=== PATIENT | female | born 1975 | race Caucasian/White ===

== ENCOUNTER 2025-04-08 04:15 | Emergency (ER) | payer OTHER, SELFPAY ==
--- OUTSIDE RECORDS SUMMARY | 2024-06-24 04:00 | XMS_ITS ---
Author Organization [facility] es Address [address] [place] [address] Care Team Providers Care Door Repairer Bus Name Role Phone Marija Lam Primary Care Provider Suhail Curry [phone] REASON FOR VISIT message sent Encounters Encounter Location Date Provider Diagnosis [facility] [place] [address] [place] [address] 06/24/2024 Suhail Curry Plan Of Treatment Next Appt Details Provider Name:Radha Turner, 04/08/2025 09:15:00 AM, [address], [place], [address], Provider Name:Norbert Fuentes, 1 06/09/2024 10:00:00 AM, [address], [place], [address], Progress Notes * WILBUR VILLALBA LDOB: 5 (50 yo F)Acc No.[id number]:06/24/2024 Patient:?WILBUR VILLALBA :?Suhail Curry DDSDOB:1975???Age:49 Y ???Sex:FemaleDate:06/24/2024Phone:[phone]:[address] [place] [address]Pcp:Marija Lam Subjective: * Chief Complaints: * M essage sent * Electronic signature of Suhail Curry DDS on 04/08/2025 at 05:01 AM ESTSign off status: Pending * Provider: Gabriele Curry DDS Date: 0 06/24/2024 Generated for Printing/Faxing/eTransmitting on:?04/08/2025 05:01 AM EST
--- OUTSIDE RECORDS SUMMARY | 2024-08-01 05:15 | XMS_ITS ---
Author Organization [facility] es Address [address] [place] [address] Care Team Providers Care Mc Kay Stitcher Name Role Phone Marija Lam Primary Care Provider [phone] Juana Reid Unavailable [phone] REASON FOR VISIT 10:45 AM; 1 HR 15 MIN Encounters Encounter Location Date Provider Diagnosis [facility] [address] [place] [address] 08/01/2024 Juana Reid Plan Of Treatment Next Appt Details Provider Name:Radha Turner, 04/08/2025 09:15:00 AM, [address], [place], [address], Provider Name:Norbert Bellzk, 1 06/09/2024 10:00:00 AM, [address], [place], [address], Progress Notes * WILBUR VILLALBA LDOB: 5 (50 yo F)Acc No.[id number]:08/01/2024 Patient:?WILBUR VILLALBA :?Juana MartinezDOB:1975???Age:49 Y???Sex:Female Date:08/01/2024Phone:[phone]:[address] [place] [address]Pcp:Marija Lam Subjective: * Chief Complaints: * 1 0:45 AM; 1 HR 15 MIN Billing Information: * Procedure Codes: * Electronic signature of Juana Reid CNP on 04/08/2025 at 05:01 AM ESTSign off status: Pending * Provider: Gabriele Martinez Date: 0 08/01/2024 Generated for Printing/Faxing/eTransmitting on:?04/08/2025 05:01 AM EST
--- OUTSIDE RECORDS SUMMARY | 2024-08-01 05:45 | XMS_ITS ---
Author Organization [facility] es Address [address] [place] [address] Care Team Providers Care Digital Research Analyst Name Role Phone Marija Lam Primary Care Provider [phone] Mari Sky Unavailable [phone] REASON FOR VISIT BH Consult - Adult DEPRESSION, ANXIETY; TRANSPORTATION Encounters Encounter Location Date Provider Diagnosis [facility] [address] [place] [address] 08/01/2024 Mari Sky Plan Of Treatment Next Appt Details Provider Name:Radha Turner, 04/08/2025 09:15:00 AM, [address], [place], [address], Provider Name:Norbert Bellzk, 1 06/09/2024 10:00:00 AM, [address], [place], [address], Progress Notes * WILBUR VILLALBA LDOB: 5 (50 yo F)Acc No.[id number]:08/01/2024 Behavioral Health Patient: WILBUR PAKC :?Mari kSy CNPDOB:1975???Age:49 Y ???Sex:FemaleDate:08/01/2024Phone:[phone]:[address] [place] [address]Pcp:Marija Lam Subjective: * Chief Complaints: * B H Consult - Adult DEPRESSION, ANXIETY; TRANSPORTATION Billing Information: * Procedure Codes: * Electronic signature of NURIA Romo on 04/08/2025 at 05:02 AM ESTSign off status: Pending * Provider: Nova Sky CNP Date: 0 08/01/2024 Generated for Printing/Faxing/eTransmitting on:?04/08/2025 05:02 AM EST
--- OUTSIDE RECORDS SUMMARY | 2024-08-05 06:30 | XMS_ITS ---
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 Encounters Encounter Location Date Provider Diagnosis [facility] [place] [address] [place] [address] 08/05/2024 Suhail Curry Plan Of Treatment Next Appt Details Provider Name:Radha Turner, 04/08/2025 09:15:00 AM, [address], [place], [address], Provider Name:Norbert Fuentes, 1 06/09/2024 10:00:00 AM, [address], [place], [address], Progress Notes * ESTRELLITA VILLALBAE LDOB: 5 (50 yo F)Acc No.[id number]:08/05/2024 Patient:?WILBUR VILLALBA Kp :?Suhail Curry DDSDOB:1975???Age:49 Y ???Sex:FemaleDate:08/05/2024Phone:[phone]:[address] [place] [address]Pcp:Marija Lam Subjective: * Chief Complaints: * N P EXAM Billing Information: * Procedure Codes: * Electronic signature of Suhail Curry DDS on 04/08/2025 at 05:01 AM ESTSign off status: Pending * Provider: Gabriele Curry DDS Date: 0 08/05/2024 Generated for Printing/Faxing/eTransmitting on:?04/08/2025 05:01 AM EST
--- OUTSIDE RECORDS SUMMARY | 2025-02-03 11:30 | XMS_ITS ---
Author Organization [facility] es Address [address] [place] [address] Care Team Providers Care Manager Grocery Name Role Phone Marija Lam Primary Care Provider [phone] REASON FOR VISIT 3 month f/u Encounters Encounter Location Date Provider Diagnosis [facility] [place] [address] [place] [address] 02/03/2025 Marija Lam Plan Of Treatment Next Appt Details Provider Name:Radha Turner, 04/08/2025 09:15:00 AM, [address] [place], [address], Provider Name:Norbert Fuentes, 1 06/09/2024 10:00:00 AM, [address] [place], [address], Progress Notes * WILBUR VILLALBA LDOB: 5 (50 yo F)Acc No.[id number]:02/03/2025 Progress Notes Patient: WILBUR PACK :?Marija LamDOB:1975???Age:50 Y???Sex: FemaleDate:02/03/2025Phone:[phone]:[address] [place] [address] Subjective: * Chief Complaints: * 3 month f/u * Electronic signature of Marija Lam CNP-DANDY, NOTCHING PRESS OPERATOR.KARINE.[email or web address] on 04/08/2025 at 05:01 AM ESTSign off status: Pending * Provider: Tera Lam Date: 1 Generated for Printing/Faxing/eTransmitting on:?04/08/2025 05:01 AM EST
--- OUTSIDE RECORDS SUMMARY | 2025-03-20 10:00 | XMS_ITS ---
Author Organization [facility] es Address [address] [place] [address] Care Team Providers Care Occupational Therapy Department Chair Name Role Phone Marija Lam Primary Care Provider [phone] REASON FOR VISIT Left arm pain, hip pain; TRANSPORTATION Encounters Encounter Location Date Provider Diagnosis [facility] [place] [address] [place] [address] 03/20/2025 Marija Lam Plan Of Treatment Next Appt Details Provider Name:Radha Suazo Turner, 04/08/2025 09:15:00 AM, [address] [place], [address], Provider Name:Norbert Fuentes, 1 06/09/2024 10:00:00 AM, [address] [place], [address], Progress Notes * WILBUR VILLALBA LDOB: 5 (50 yo F)Acc No.[id number]:03/20/2025 Progress Notes Patient: WILBUR PACK :?Marija LamDOB:1975???Age:50 Y???Sex: FemaleDate:03/20/2025Phone:[phone]:[address] [place] [address] Subjective: * Chief Complaints: * L eft arm pain, hip pain; TRANSPORTATION Billing Information: * Procedure Codes: * Electronic signature of Marija Lam CNP-BC, BRINE TANK OPERATOR.FIELD LOGISTICS COORDINATOR.[id number] on 04/08/2025 at 05:02 AM ESTSign off status: Pending * Provider: Tera Lam Date: 1 05/21/2024 Generated for Printing/Faxing/eTransmitting on:?04/08/2025 05:02 AM EST
[2025-04-08] VITALS (45 sets, daily range): BP systolic 104–141; BP diastolic 60–88; PULSE 72–103; TEMP 37.2; O2SAT 82–97; BMI 22.7
--- NOTE | 2025-04-08 | CT_ITS ---
The [address] [address] Patient Name: WILBUR VILLALBA MRN: [id number] date: 1975 Sex: F Assigned Patient Location: ER Current Patient Location: ER Accession/Order Number: [id number] Exam Date: 04/08/2025 11:48 Report Date: 04/08/2025 12:20 At the request of: HAYDEE OCONNOR MD Procedure: CT head/brain w con CT BRAIN WITH CONTRAST: CLINICAL HISTORY: DURAL VENOUS THROMBOSIS COMPARISON: CT head without contrast 04/08/2025 TECHNIQUE: Contiguous axial contrast enhanced images were obtained through the brain for the venogram protocol. This CT exam was performed using one or more following dose reduction techniques: Automated exposure control, adjustment of the mA and/or kV according to patient size, or use of iterative reconstruction technique. FINDINGS: Negative for dural venous sinus thrombosis. Internal cerebral veins and vein of Pranav unremarkable. No abnormal parenchymal enhancement. No midline shift. No hydrocephalus. Symmetric appearance of these superior ophthalmic veins/Unremarkable enhancement of the cavernous sinuses CT/CT head/brain w con IMPRESSION: Negative for dural venous sinus thrombosis Impression dictated by: Malik Call M.D. 04/08/2025 12:20 PM Dictation Location: [place] [address] Electronically authenticated by: [id number] Y Date: 04/08/2025 12:20
--- NOTE | 2025-04-08 04:36 | XR_ITS ---
The [address] [address] Patient Name: WILBUR VILLALBA MRN: [id number] date: 1975 Sex: F Assigned Patient Location: ED.MAIN Current Patient Location: ER Accession/Order Number: [id number] Exam Date: 04/08/2025 05:10 Report Date: 04/08/2025 09:04 At the request of: HAYDEE OCONNOR MD Procedure: XR chest 1V PORTABLE AP ERECT CHEST 0446 hours CLINICAL HISTORY: Chest pain, dizziness and altered mental status COMPARISON: None The heart is within normal limits. There is no vascular congestion. The lungs, as visualized, are clear. There is no effusion or pneumothorax. The osseous structures are intact. XR/XR chest 1V IMPRESSION: NO ACUTE FINDINGS Impression dictated by: Polina Deltaorre M.D. 04/08/2025 9:04 AM Dictation Location: [place] [address] Electronically authenticated by: [id number] Y Date: 04/08/2025 09:04
--- NOTE | 2025-04-08 04:36 | ECG_ITS ---
The [facility] Test Date: 2025-04-08 Pat Name: Tate Barnhart Department: Room: - Gender: Female Assistant Professor Of Spanish: : 1975 Requested By: Order Number: [id number] Reading MD: CATY LEBLANC M.D. Measurements Intervals [place] Rate: 84 P: 49 DC: 146 QRS: 55 QRSD: 74 T: 43 QT: 404 QTc: 445 Interpretive Statements 1100 Sinus rhythm 9110 normal ECG Compared to ECG 09/12/2018 16:09:30 No significant changes Electronically Signed On 04-09-2025 11:31:34 EST by CATY LEBLANC M.D.
--- OUTSIDE RECORDS SUMMARY | 2025-04-08 05:01 | XMS_ITS | Clinical Summary ---
Author Organization [facility] Address [address] [place] [address] Care Team Providers Care Pad Assembler Name Role Phone Unavailable Primary Care Provider Unavailabl e Allergies Active AllergyReactionsCriticalityNoted MirqSjwdhtgoGuiamhkgulQucne72/19/2014 Other Reaction(s): hives, Unknown Medications MedicationSigDispense QuantityRefillsLast FilledStart DateEnd DateStatus ibuprofen 600 MG tablet Take 1 tablet by mouth every 8 (eight) hours10/02/2023ctive pregabalin (Lyrica) 150 MG capsule 1 capsule every 8 (eight) hours10/24/2023ctive doxycycline (Monodox) 100 MG capsule Take 100 mg by mouth in the morning and 100 mg before bedtime.12/13/2022ctive Active Problems Patient Care Coordination No te Formatting of this note migh t be different from the original. Family [facility] Svs. No known active problems Social History Tobacco UseTypesPacks/DayYears UsedDateSmoking Tobacco: Every DayCigarettes Smokeless Tobacco: Never Tobacco Cessation:Ready to Q uit: Not Asked; Counseling Given: Not Answered Alcohol UseStandard Drinks/WeekCommentsYes0 (1 standard drink = 0.6 oz pure alcohol)occasionallyCommentsUnknownSex and Gender InformationValueDate RecordedSex Assigned at BirthNot on fileLegal DscDglsxb19/15/2023 10:01 PM EDT Gender IdentityNot on fileSexual OrientationNot on file Last Filed Vital Signs Vital SignReadingTime TakenCommentsBlood Pressure--Pulse--Wkvihdltxps96.6 ??C (97.8 ??F)11/01/2023 1:41 PM EDTRespiratory Rate--Oxygen Saturation--Inhaled Oxygen Concentration--Bgpcez80.7 kg (147 lb)12/04/2023 11:23 AM IDSIxbsgm522.2 cm (5' 7 )12/04/2023 11:23 AM EDTBody Mass Index23.02012/04/2023 11:23 AM EDT Plan of Treatment Not on file Insurance
--- OUTSIDE RECORDS SUMMARY | 2025-04-08 05:02 | XMS_ITS | Patient Health Record ---
Author Organization [facility] es Address [address] [place] [address] Care Team Providers Care Lieutenant/Deputy Name Role Phone GenaroMarija Primary Care Provider Dr. Norbert Fuentes Unavailable [phone] Radha Turner Unavailable [phone] Juana Reid Unavailable [phone] Suhail Curry Unavailable [phone] Arminda Jeff Unavailable Mari Sky Unavailable [phone] Allergies Allergen (clinical drug ingredient) Drug/Non Drug Allergy documented on EMR Reaction Allergy Type Onset Date Status KeflexhivesDrug AllergyActive Reason For Referral Reason REFERRAL OVER 60 DAY S OLD Please send referral to Dr Max at [facility] and last note *FAXED 07/19 - FAXED REFERRAL UPDATE 07/31 Diagnosis 1 History of DVT (deep vein thrombosis) (Z86.718) Diagnosis [address] (Z95.828) Referral Organization [facility] Referring Provider First Name Arminda Referring Provider Last Name Randee Referring Provider Speciality [facility] Referred Provider MEGHNA MAX Referred Provider Specialty Vascular Demetri jenny General Notes Tory Steele 2024 11:19:34 AM >Dr. Meghna Max [phone] Referral Priority Routine Medications Medication SIG (Take, Route, Frequency, Duration) Notes Start Date End Date Status traZODone HCl 100 MG Tablet 1 tablet at bedtime Orally Once a day; Duration: 30 days 5ActiveAzelastine HCl 137 MCG/SPRAY Solution2 puffs (1 spray in each nostril) Nasally Twice a day; Duration: 30 days5ActivehydrOXYzine HCl 25 MG Tablet1 tablet as needed Orally at bedtime; Duration: 07/19/2024 ActivePregabalin 300 MG CapsuleTAKE 1 CAPSULE BY MOUTH TWICE A DAY; Duration: 02/17/2025tiveIbuprofen 800 MG Tablet1 tablet with food or milk as needed Orally Three times a day03/18/2024ctiveCetirizine HCl 10 MG Tablet1 tablet Orally Once a day; Duration: 30 03/18/2024ctiveFLUoxetine HCl 20 MG Capsule 1 capsule Orally Once a day; Duration: 30 5Active Social History Tobacco Use: Social History Observation Description Date Details (start date - stop date) Current Smoker NA - NA Social History GeneralSocial InfoQuestionAnswerNotesTransition of Care:ER/UC/hospital since last office visit?NoSpecialist seen since last office visit?NoDepression Screening (PHQ-9):Little interest or pleasure in doing thingsNot at allFeeling down, depressed, or hopelessNot at allTrouble falling or staying asleep, or sleeping too muchNot at allFeeling tired or having little energyNot at allPoor appetite or overeatingNot at allFeeling bad about yourself-or that you are a failure or have let yourself or your family downNot at allTrouble concentrating on things, such as reading the newspaper or watching televisionNot at allMoving or speaking so slowly that other people could have noticed. Or the opposite being so fidgetyor restless that you have been moving around a lot more than usualNot at allThoughts that you would be better off , or of hurting yourself in some wayNot at allTotal Mdkrk6Xfkniolxd abuse/mental health issues of patient/familyPatient -Caffeine Use, Stress/Anxiety, DepressionAbility to understand healthcare/treatmentPatient:FairSexual Hx:Had sex in the last 12 months (vaginal, oral, or anal)?Yes? withMen only? Use protection?No? Prevention Strategies discussed:OtherHave you ever had an STD?NoSocial/Support Concerns: Patient:NoBehaviors affecting healthPoor/Risky Behaviors:Denies-Communication Barrier:Language Barrier?:NoDrug/Alcohol:Social InfoQuestionAnswerNotesAUDIT-C (Standard)Did you have a drink containing alcohol in the past year?NoPoints0 InterpretationNegativeTobacco Use:Social InfoQuestionAnswerNotesTobacco Control (Standard)Tobacco use:Current smoker? How often do you smoke cigarettes?Every day? How many cigarettes a day do you smoke?11-20? How soon after you wake up do you smoke your first cigarette?31-60 minutes? Are you interested in quitting? Ready to quit Problems Problem Type SNOMED Code ICD Code Onset Dates Problem Status W/U Status Risk Notes Problem Tobacco user (192275988) Nicotin e dependence, unspecified, uncomplicated (F17.200) ActiveconfirmedProblemNeuropathy (071015631)Neuropathy (G62.9)Activeconfirmed ProblemChronic insomnia (449511142)Chronic insomnia (F51.04)Activeconfirmed ProblemAllergic rhinitis (81253611)Allergic sinusitis (J30.9)Activeconfirmed ProblemModerate recurrent major depression (02078364)Moderate episode of recurrent major depressive disorder (F33.1)ActiveconfirmedProblemBipolar affective disorder, currently manic, moderate (346698133)Bipolar 1 disorder with moderate kareen (F31.12)ActiveconfirmedProblemAllergic rhinitis (11706906)Chronic allergic rhinitis (J30.9)Activeconfirmed Vital Signs Heart Rate 65 /min 10/31/2024 Ufgzsravpgb91.7 degrees Iuvcbksnwm02/17/4525Zoormmdb78 %10/31/2024lood pressure diptqxctj560 mm Hg10/31/20240103Wisrqg34 in10/31/2024lood pressure diqjllxs692 mm Hg10/31/20245983Mcuymk623.4 lbs10/31/2024BMI24.86 kg/m210/31/2024 Encounters Encounter Location Date Provider Diagnosis [facility] [address] [place] [address] 07/03/2024 Arminda Jeff Neuropathy G62.9 [place] [address] [place] [address] 10/23/2024 Marija Lam Neuropathy G62.9 [facility] [address] [place] [address] 12/03/2024 [facility] [place] [address] [facility] [place] [address]/07/2024 Armindamatt JeffNicotine dependence, unspecified, uncomplicated F17.200 ; Chronic allergic rhinitis J30.9 ; Historyof DVT (deep vein thrombosis) Z86.718 ; Encounter for smoking cessation counseling Z71.6 ; Stanley filter in place Z95.828 ; Chronic insomnia F51.04 ; Moderate episode of recurrent major depressive disorder F33.1 and Neuropathy G62.9[facility] [address] [place] [address]/Valerie CastilloModerate episode of recurrent major depressive disorder F33.1 ; Chronic insomnia F51.04 ; Allergic sinusitis J30.9 ; Neuropathy G62.9 ; Nicotine dependence, unspecified, uncomplicated F17.200 and Acute non-recurrent pansinusitis J01.40[facility] [address] [place] [address]/Joseph RikyliekComplete loss of teeth, unspecified cause, class I K08.101 ; Encounter for dental examination and cleaning with abnormal findings Z01.21 and Disturbances in tooth eruption K00.6 Assessments Encounter Date Diagnosis (ICD Code) Assessment Notes Treatment Notes Treatment Clinical Notes Section Notes 07/19/2024 Nicotine dependence, unspecified , uncomplicated (ICD-10 - F17.200) 07/19/2024hronic allergic rhinitis (ICD-10 - J30.9)Take medication as directed. Use saline nasal spray may help with symptom relief. OTC medications such as Zyrtec, Romelia or Claritin can help with symptoms during the peak of allergy season. Follow up with our office if symptoms persist as a therapy plan may need to be made.5Complete loss of teeth, unspecified cause, class I (ICD-10 - K08.101)10/23/2024Neuropathy (ICD-10 - G62.9)07/03/2024Neuropathy (ICD-10 - G62.9)10/31/2024Moderate episode of recurrent major depressive disorder (ICD-10 - F33.1)Increase fluoxitine to 20 mg oral daily. Consider Behavior Health referral in the future if symptoms do not improve.10/31/2024hronic insomnia (ICD-10 - F51.04)Start trazodone 100 mg oral daily. Limit caffiene use later in the day.12/03/2024Encounter for dental examination and cleaning with abnormal findings (ICD-10 - Z01.21)07/19/2024History of DVT (deep vein thrombosis) (ICD- 10 - Z86.718)Will put in referral for Dr. Max07/19/2024Jenae for smoking cessation counseling (ICD-10 - Z71.6)10/31/2024llergic sinusitis (ICD-10 - J30.9)Is currently taking ceterizine. Will continue. She is currently doing German Med nasal irrigation butis getting yellow-green nasal secreations. Start Astelin nasal spray as directed.12/03/2024Disturbances in tooth eruption (ICD-10 - K00.6)10/31/2024Neuropathy (ICD-10 - G62.9)Neuropathy symptoms of lower extremities. Reports pregabalin is effective for her pain. She also reports she has history of fibromyalgia. States pregabalin aids with her fibro pain as well. Will continue current dose of 300 mg oral twice daily. OARRS reviewed.07/19/[address] (ICD-10 - Z95.828)Will put in referral as we discussed today in zwapxl7710/31/2024Nicotine dependence, unspecified, uncomplicated (ICD-10 - F17.200)Is a current smoker. Discussed cessation today. She is not interested at this time.07/19/2024hronic insomnia (ICD-10 - F51.04) Start medication today and we have plans for follow up in a few weeks for 10/31/2024ute non-recurrent pansinusitis (ICD-10 - J01.40)Start zpak as directed.07/19/2024Moderate episode of recurrent major depressive disorder (ICD- 10 - F33.1)Discussed treatment options today in office and will start a new medication daily and another medication that patient will be able to take as needed for her panic attacks. Discussed side effect include drowsiness and should try medications at home today before taking them at work. If patient has any feeling of self harm or thoughts of wanting to hurt themselves or someone else, please contact office, go to emergency room, or call mental health hotlines. Patient will follow up in 4 weeks to see how they are doing07/19/2024 Neuropathy (ICD-10 - G62.9)Will continue medications today since patient states that she feels stable on doses07/19/2024OtherBody Mass Index: Care Instructions material was yxtomcj2610/31/2024OtherBody Mass Index: Care Instructions material was printed Plan Of Treatment Next Appt Details Provider Name:Radha Turner, 04/08/2025 09:15:00 AM, [address] [place], [address], Provider Name:Norbert Gina, 1 06/09/2024 10:00:00 AM, [address] [place], [address], Insurance Providers Payer Name Payer Address Payer Phone Subscriber Number Group Number Insured Name Patient Relationship to Insured Coverage Start Date Coverage End Date [employer] [place] [employer] [address] [place] [address] [id number] Rigoberto VILLALBA - patient is the wbrwxqv2105/18/2022Wrap [facility] [address] [place] [id number], RENESelf - patient is the hnaoxyx6205/18[facility]/17/22.[address] [place] [id number], RENESelf - patient is the [id number] [facility] after [place]-termed 05/17/22[address] [place] [id number], RENESelf - patient is the [id number] [place] EnvolvePO [address] [address] [place] [id number], RENESelf - patient is the quduhua7212/03/2024Dental Wrap [facility] [address] [place] [id number], RENESelf - patient is the zxoyjsp2012/03/2024 Medical (General) History Medical History History ICD Code depression anxietyMTHRDVT'sSeveral MiscarriagesGreen FilterSurgical History Surgery Date(Month/Year) x2 total abdominal hysterectomyHospitalization History Reason Date(Month/Year) 2015
--- OUTSIDE RECORDS SUMMARY | 2025-04-08 05:02 | XMS_ITS | Clinical Summary ---
Author Organization [employer] Address [id number] [address] [place] [address] Care Team Providers Care Software Installer Name Role Phone Sabino Camejo MD Primary Care Provider [phone] Allergies Active AllergyReactionsCriticalityNoted MfqcDhhegzpvFzdevifkctAewlf02/19/2014 Medications MedicationSigDispense QuantityRefillsLast FilledStart DateEnd DateStatus zolpidem (AMBIEN) 5 mg tablet Take 5 mg by mouth nightly as needed for sleep.Active cyclobenzaprine (FLEXERIL) 5 mg tablet Take 5 mg by mouth 3 (three) times a day as needed for muscle spasms.Active pregabalin (LYRICA) 300 mg capsule Take 300 mg by mouth 2 (two) times a day.Active QUEtiapine (SEROquel) 200 mg tablet Take 200 mg by mouth nightly.Active rivaroxaban (XARELTO) tablet Take 20 mg by mouth daily.Active lysine 1,000 mg tablet Lysine 1000 MG TABS Refills: 0 ActiveActive Active Problems ProblemNoted DateDiagnosed DateUncooperative /10/2018Drug abuse 11/24/2017Suicide gckdfgt3811/24/2017 Immunizations ImmunizationAdministration DatesNext AomDzuy9511/24/2017 Social History Tobacco UseTypesPacks/DayYears UsedDateSmoking Tobacco: NcqmalUstmqepjnh7Rbqs: 2017Smokeless Tobacco: NeverAlcohol UseStandard Drinks/WeekCommentsYes0 (1 standard drink = 0.6 oz pure alcohol)ChildcareAnswerDate RecordedChildcare Khhvfhe5709/26/2018EmploymentAnswerDate ZdysknfkRtjqnbukbsHujvteo95/12/2019Purpose - LifeAnswerDate RecordedPurpose and direction in dnqbIgldzfx50/11/2021 CommentsNoSex and Gender InformationValueDate RecordedSex Assigned at BirthNot on fileLegal CsnAfdjhe69/04/2015 11:29 PM EDTGender IdentityNot on fileSexual OrientationNot on file Last Filed Vital Signs Vital SignReadingTime TakenCommentsBlood Aynpvect451/76006/04/2018 9:44 PM EST Tjmgq457306/04/2018 8:57 PM WJVKlvhgvtbgcg00 ??C (98.6 ??F)06/04/2018 8:27 PM EST Respiratory Qtjq408706/04/2018 8:57 PM ESTOxygen Dkohjxbyrx45%06/04/2018 8:27 PM ESTInhaled Oxygen Concentration--Klvnhu00.4 kg (133 lb 2.5 oz)06/04/2018 8:27 PM SLYAjamso827.7 cm (5' 8 )06/04/2018 8:27 PM ESTBody Mass Index20.25006/04/2018 8:27 PM EST Plan of Treatment Health MaintenanceDue DateLast DoneCommentsDepression Rxfborxvh53/28/1987Tobacco Wdknxmgch28/28/1987Adult BMI Jdomxfuhm21/28/1993Influenza Wolykmh2612/16/2024 Zoster (Shingles) Vaccine (1 of 2)2025DTaP,Tdap and Td Vaccines (2 - Td or Tdap) Medical Devices Not on file Insurance Care Teams Team MemberRelationshipSpecialtyStart DateEnd Date Sabino Camejo MD [facility] - [facility]
--- NOTE | 2025-04-08 05:03 | ED.GENADUL1 ---
Documented by User: Sasha Lim MD 04/08/25 06:57 HPI HPI - General Adult General Chief complaint: Dizziness Stated complaint: WEAKNESS Time Seen by Provider: 04/08/25 04:28 Source: patient and other Source information: EMS Mode of arrival: ambulance Limitations: no limitations History of Present Illness HPI narrative: This 50-year-old female who is on trazodone for sleep and Lyrica to the emergency department by EMS from home. The patient states that she is dizzy. She admits that she took her trazodone tonight to help her sleep. She states that she does not always take the trazodone and when she does take it she breaks it in half. She was formally on Ambien as well but denies that she is currently taking Ambien. She admits to alcohol use but denies that she was drinking any alcohol last night. She does not remember going to bed. She states that earlier in the night she went downstairs to get something to drink and then went back to bed. She has a bruise in the lower aspect of her left eye where she thinks she struck her face on a kitchen cupboard. She does not have any focal weakness numbness or tingling. She is somewhat confused and thinks that today is going into Monday and told the nurse during her intake that it was 2022. She has no abdominal pain or back pain. She has no lower extremity pain or swelling. She complains of a burning sensation in her chest. She has not had any dizziness or syncope. She lives at home with her fianc?. Related Data Home Medications ?Medication ?Instructions ?Recorded ?Confirmed azelastine 137 mcg (0.1 %) nasal 1 spray intranasal BID 04/08/25 04/08/25 spray fluoxetine 20 mg capsule 20 mg PO DAILY 04/08/25 04/08/25 pregabalin 300 mg capsule 300 mg PO BID 04/08/25 04/08/25 trazodone 100 mg tablet 100 mg PO HS 04/08/25 04/08/25 Previous Rx's ?Medication ?Instructions ?Recorded sulfamethoxazole 800 1 tab PO BID 7 days #14 tabs 04/08/25 mg-trimethoprim 160 mg tablet (Bactrim DS) Allergies Allergy/AdvReac Type Severity Reaction Status Date / Time cephalexin (From [facility]crow Visual Effects) Allergy Mild Hives Verified 04/08/25 04:18 Opioid HPI Opioid Management Most Recent Opioid Data: Ur Phencyclidine Scrn, (NEGATIVE) Negative Today, 06:38 Review of Systems ROS Status of ROS 10 or more systems reviewed and unremarkable except as noted in history and below PFSH PFSH Social History Little interest or pleasure in doing things: not at all Feeling down, depressed, or hopeless: not at all Exam Narrative Exam Narrative: Vital signs and Nursing Notes reviewed: Febrile with a normal pulse, normal blood pressure, she is not hypoxic with pulse ox of 96% on room air General: Awake, alert, oriented to in, place but thinks it is going into Monday and 2022 HEENT: Normocephalic atraumatic, mucous membranes are moist and pink, eyes are clear, normal conjunctiva, vision is grossly intact, posterior pharynx is normal in appearance. Patient is edentulous, small area of ecchymosis under left eye, ocular muscles are intact, no diplopia noted Neck: Supple, no meningeal signs, no anterior or posterior cervical lymphadenopathy Chest: Lungs are clear to auscultation with good air entry, there is no wheezing rhonchi or rales appreciated no accessory muscle use, patient is speaking in complete sentences-no chest wall tenderness to palpation CVS: Regular rate and rhythm S1-S2, no murmurs rubs or gallops, pulses are brisk and equal bilaterally ABD: Soft, nondistended, nontender, no rebound guarding or rigidity, bowel sounds are normal, no pulsatile masses appreciated Extremities: Moving all extremities, no lower extremity tenderness or swelling noted, negative Homans' sign, pulses are brisk and equal bilaterally Skin: Normal in appearance without rash,pallor, petechiae or purpura Neuro: No focal deficits; clear, contract law specialist strength is intact, upper and lower extremity strength and sensation is intact, negative pronator drift no facial droop mildly confused as to day of the week and year Constitutional Vital Signs, click to edit/add: Last Vital Signs Temp 99.0 F 04/08/25 04:19 Pulse 103 H 04/08/25 10:40 Resp 23 H 04/08/25 10:40 BP 115/68 04/08/25 10:30 Pulse Ox 97 04/08/25 11:30 O2 Del Method Room Air 04/08/25 04:19 Course Vital Signs Vital signs: Vital Signs Temperature 99.0 F 04/08/25 04:19 Pulse Rate 88 04/08/25 04:19 Respiratory Rate 19 04/08/25 04:19 Blood Pressure 128/72 04/08/25 04:19 Pulse Oximetry 96 04/08/25 04:19 Oxygen Delivery Method Room Air 04/08/25 04:19 Temperature 99.0 F 04/08/25 04:19 Pulse Rate 103 H 04/08/25 10:40 Respiratory Rate 23 H 04/08/25 10:40 Blood Pressure 115/68 04/08/25 10:30 Pulse Oximetry 97 04/08/25 11:30 Oxygen Delivery Method Room Air 04/08/25 04:19 Medical Decision Making MDM Narrative Medical decision making narrative: This 50-year-old female is brought to the emergency department by EMS from home for evaluation of dizziness and confusion. The patient takes trazodone for sleep and took a trazodone last night. She was formerly on Ambien but is not currently taking Ambien. She also takes Lyrica. I did review her OARRS report which is positive for Lyrica only. Upon arrival she was confused as to the day of the week and the year and has a small eccymotic area under her left eye which she thinks may have been caused from a kitchen cabinet hitting her. Her neuroexam was otherwise normal. EKG is a sinus rhythm at 84 bpm with no acute findings. An IV was placed and routine labs were ordered. She has a normal white count and hemoglobin. Electrolytes are normal. She does have elevation in her liver function tests and lactic acid is 2.6. She has a normal troponin. She is not having any abdominal pain or back pain. She was given IV fluids and meclizine. On reevaluation she states she is feeling better. She states that when she woke up the room was spinning and she was extremely dizzy. She states that even if she closes her eyes she felt like the room was spinning. On re-evaluation, she is tolerating clear liquids and feeling less dizzy. CXR was reviewed by mike and does not show any acute findings, CT scan of the head/brain was also ordered. CT scan of the head is pending at the end of my shift and she will be signed out to the incoming physician at 7am. Lab Data Lab results reviewed: Yes I reviewed the patient's lab results Labs: Lab Results 04/08/25 04/08/25 04/08/25 Range/Units 05:05 06:38 07:57 WBC 4.8 (4.0-11.0) 10^3/uL RBC 4.00 L (4.20-5.40) 10^6/uL Hgb 14.3 (12.0-16.0) g/dL Hct 41.5 (36.0-48.0) % MCV 103.8 H (81.0-99.0) fL MCH 35.8 H (26.7-34.0) pg MCHC 34.5 (29.9-35.2) g/dL RDW 12.8 (11.0-15.0) % Plt Count 272 (150-450) 10^3/uL MPV 9.6 (9.5-13.5) fL Neut % (Auto) 67.6 (43.0-75.0) % Lymph % (Auto) 19.3 L (20.5-60.0) % Conway % (Auto) 11.0 (1.7-12.0) % Eos % (Auto) 0.4 L (0.9-7.0) % Baso % (Auto) 1.5 (0.2-2.0) % Neut # (Auto) 3.3 (1.4-6.5) 10^3/uL Lymph # (Auto) 0.9 L (1.2-3.8) 10^3/uL Conway # (Auto) 0.5 (0.3-0.8) 10^3/uL Eos # (Auto) 0.0 (0.0-0.7) 10^3/uL Baso # (Auto) 0.1 (0.0-0.1) 10^3/uL Abs Immat Gran (auto) 0.01 (0.00-0.03) 10^3/uL Imm/Tot Granulo (auto) 0.2 (0.0-0.5) % Sodium 139 (136-145) mmol/L Potassium 3.5 (3.5-5.1) mmol/L Chloride 101 (98-107) mmol/L Carbon Dioxide 28.9 (21.0-32.0) mmol/L Anion Gap 12.6 BUN 20.0 H (7.0-18.0) mg/dL Creatinine 0.96 (0.55-1.02) mg/dL Est GFR ( Amer) >60 (>=60 mL/min/1.73m^2) Est GFR (Non-Af Amer) >60 (>=60 mL/min/1.73m^2) BUN/Creatinine Ratio 20.8 Glucose 250 H (74-106) mg/dL Lactate 2.7 H* (0.4-2.0) mmol/L Calcium 8.6 (8.5-10.1) mg/dL Magnesium 1.5 L (1.8-2.4) mg/dL Total Bilirubin 0.7 (0.2-1.0) mg/dL AST 191 H (15-37) U/L ALT 126 H (14-59) U/L Alkaline Phosphatase 168 H (46-116) U/L Total Creatine Kinase 73 (26-192) U/L Troponin I High Sens 6.2 (4.0-51.3) pg/mL Total Protein 6.7 (6.4-8.2) g/dL Albumin 3.7 (3.4-5.0) g/dL Globulin 3.0 g/dL Albumin/Globulin Ratio 1.2 Urine Color Yellow (YELLOW) Urine Clarity Clear (CLEAR) Urine pH 6.5 (5.0-9.0) Ur Specific Dalton 1.020 (1.005-1.025) Urine Protein 30 A (NEG/TRACE) mg/dL Urine Glucose (UA) Negative (NEGATIVE) mg/dL Urine Ketones Trace A (NEGATIVE) mg/dL Urine Occult Blood Negative (NEGATIVE) Urine Nitrite Positive A (NEGATIVE) Urine Bilirubin Negative (NEGATIVE) Urine Urobilinogen 1.0 (0.2-1.0) EU/dL Ur Leukocyte Esterase Negative (NEGATIVE) Urine RBC 0-2 (0-2) #/HPF Urine WBC 5-10 A (NONE SEEN) #/HPF Ur Squamous Epith Cells Rare (NONE/RARE) #/LPF Urine Crystals None seen (None Seen) #/HPF Urine Bacteria Moderate A (NONE SEEN) #/HPF Urine Casts None seen (NONE SEEN) #/LPF Urine Mucus None seen (NONE SEEN) Ur Culture Indicated? Yes-[facility] [place] Urine Opiates Screen Negative (NEGATIVE) Ur Buprenorphine Scrn Negative (NEGATIVE) Ur Oxycodone Screen Negative (NEGATIVE) Urine Methadone Screen Negative (NEGATIVE) Ur Barbiturates Screen Negative (NEGATIVE) U Tricyclic Antidepress Negative (NEGATIVE) Ur Phencyclidine Scrn Negative (NEGATIVE) Ur Amphetamines Screen Negative (NEGATIVE) U Methamphetamines Scrn Negative (NEGATIVE) U Benzodiazepines Scrn Negative (NEGATIVE) Urine Cocaine Screen Negative (NEGATIVE) U Cannabinoids Screen Positive A (NEGATIVE) Ethanol Quant <3 mg/dL POC Glucose (74-106) mg/dL 04/08/25 04/08/25 Range/Units 07:59 08:01 WBC (4.0-11.0) 10^3/uL RBC (4.20-5.40) 10^6/uL Hgb (12.0-16.0) g/dL Hct (36.0-48.0) % MCV (81.0-99.0) fL MCH (26.7-34.0) pg MCHC (29.9-35.2) g/dL RDW (11.0-15.0) % Plt Count (150-450) 10^3/uL MPV (9.5-13.5) fL Neut % (Auto) (43.0-75.0) % Lymph % (Auto) (20.5-60.0) % Conway % (Auto) (1.7-12.0) % Eos % (Auto) (0.9-7.0) % Baso % (Auto) (0.2-2.0) % Neut # (Auto) (1.4-6.5) 10^3/uL Lymph # (Auto) (1.2-3.8) 10^3/uL Conway # (Auto) (0.3-0.8) 10^3/uL Eos # (Auto) (0.0-0.7) 10^3/uL Baso # (Auto) (0.0-0.1) 10^3/uL Abs Immat Gran (auto) (0.00-0.03) 10^3/uL Imm/Tot Granulo (auto) (0.0-0.5) % Sodium (136-145) mmol/L Potassium (3.5-5.1) mmol/L Chloride (98-107) mmol/L Carbon Dioxide (21.0-32.0) mmol/L Anion Gap BUN (7.0-18.0) mg/dL Creatinine (0.55-1.02) mg/dL Est GFR ( Amer) (>=60 mL/min/1.73m^2) Est GFR (Non-Af Amer) (>=60 mL/min/1.73m^2) BUN/Creatinine Ratio Glucose (74-106) mg/dL Lactate 0.9 (0.4-2.0) mmol/L Calcium (8.5-10.1) mg/dL Magnesium (1.8-2.4) mg/dL Total Bilirubin (0.2-1.0) mg/dL AST (15-37) U/L ALT (14-59) U/L Alkaline Phosphatase (46-116) U/L Total Creatine Kinase (26-192) U/L Troponin I High Sens 6.5 (4.0-51.3) pg/mL Total Protein (6.4-8.2) g/dL Albumin (3.4-5.0) g/dL Globulin g/dL Albumin/Globulin Ratio Urine Color (YELLOW) Urine Clarity (CLEAR) Urine pH (5.0-9.0) Ur Specific Dalton (1.005-1.025) Urine Protein (NEG/TRACE) mg/dL Urine Glucose (UA) (NEGATIVE) mg/dL Urine Ketones (NEGATIVE) mg/dL Urine Occult Blood (NEGATIVE) Urine Nitrite (NEGATIVE) Urine Bilirubin (NEGATIVE) Urine Urobilinogen (0.2-1.0) EU/dL Ur Leukocyte Esterase (NEGATIVE) Urine RBC (0-2) #/HPF Urine WBC (NONE SEEN) #/HPF Ur Squamous Epith Cells (NONE/RARE) #/LPF Urine Crystals (None Seen) #/HPF Urine Bacteria (NONE SEEN) #/HPF Urine Casts (NONE SEEN) #/LPF Urine Mucus (NONE SEEN) Ur Culture Indicated? Urine Opiates Screen (NEGATIVE) Ur Buprenorphine Scrn (NEGATIVE) Ur Oxycodone Screen (NEGATIVE) Urine Methadone Screen (NEGATIVE) Ur Barbiturates Screen (NEGATIVE) U Tricyclic Antidepress (NEGATIVE) Ur Phencyclidine Scrn (NEGATIVE) Ur Amphetamines Screen (NEGATIVE) U Methamphetamines Scrn (NEGATIVE) U Benzodiazepines Scrn (NEGATIVE) Urine Cocaine Screen (NEGATIVE) U Cannabinoids Screen (NEGATIVE) Ethanol Quant mg/dL POC Glucose 111 H (74-106) mg/dL ECG Data Attestation: I personally reviewed and interpreted this ECG as follows: (Sinus rhythm at 84 bpm, normal axis, normal intervals, no acute ST segment elevation or T wave inversion) Discharge Plan Discharge Chief Complaint: Dizziness Clinical Impression: Dizziness, Alcoholic hepatitis, Confusion, Marijuana use, UTI (urinary tract infection), Proteinuria Patient Disposition: Home, Self-Care Time of Disposition Decision: 14:13 Condition: Fair Prescriptions / Home Meds: New sulfamethoxazole-trimethoprim [Bactrim DS] 800-160 mg tablet 1 tab PO BID 7 Days Qty: 14 0RF No Action trazodone 100 mg tablet 100 mg PO HS pregabalin 300 mg capsule 300 mg PO BID azelastine 137 mcg (0.1 %) spray,non-aerosol 1 spray INTRANASAL BID fluoxetine 20 mg capsule 20 mg PO DAILY Print Language: German Instructions: Dehydration (ED), Urinary Tract Infection in Women (ED), Cannabis Use Disorder (ED), Dizziness (ED), Alcoholic Hepatitis (ED) Additional Instructions: Increase fluids at home, Gatorade, Powerade, water. You do not have glucose in your urine, no acute signs of diabetes at this time. You do have protein in your urine. Increase fluids at home, follow-up with urine testing next week to recheck for urinary tract infection and proteinuria. There was marijuana in your drug screen. A copy of your CT report was given to you, there is no acute signs of venous sinus thrombosis, blood clot in the veins in your brain. Increase fluids at home, follow-up with PCP for additional testing Education was given to you on alcoholic hepatitis. You have elevated liver function test from probable chronic alcohol use. Follow-up with your PCP for outpatient rehabilitation from alcohol use or inpatient testing if needed. You are placed on antibiotic, start your first dose today. Referrals: Christin Elmore DO [Physician, Hospitalist] - 1 week Physician,Non-Staff, MD [Primary Care Provider] - 1 week Discharge Date/Time: 04/08/25 14:32 Documented by User: Apollo Burciaga MD 04/08/25 20:15 HPI HPI - General Adult General Chief complaint: Dizziness Stated complaint: WEAKNESS Time Seen by Provider: 04/08/25 04:28 Related Data Home Medications ?Medication ?Instructions ?Recorded ?Confirmed azelastine 137 mcg (0.1 %) nasal 1 spray intranasal BID 04/08/25 04/08/25 spray fluoxetine 20 mg capsule 20 mg PO DAILY 04/08/25 04/08/25 pregabalin 300 mg capsule 300 mg PO BID 04/08/25 04/08/25 trazodone 100 mg tablet 100 mg PO HS 04/08/25 04/08/25 Previous Rx's ?Medication ?Instructions ?Recorded sulfamethoxazole 800 1 tab PO BID 7 days #14 tabs 04/08/25 mg-trimethoprim 160 mg tablet (Bactrim DS) Allergies Allergy/AdvReac Type Severity Reaction Status Date / Time cephalexin (From [facility] Visual Effects) Allergy Mild Hives Verified 04/08/25 04:18 Opioid HPI Opioid Management Most Recent Opioid Data: Ur Phencyclidine Scrn, (NEGATIVE) Negative Today, 06:38 PFSH PFSH Social History Little interest or pleasure in doing things: not at all Feeling down, depressed, or hopeless: not at all Exam Constitutional Vital Signs, click to edit/add: Last Vital Signs Temp 99.0 F 04/08/25 04:19 Pulse 103 H 04/08/25 10:40 Resp 23 H 04/08/25 10:40 BP 115/68 04/08/25 10:30 Pulse Ox 97 04/08/25 11:30 O2 Del Method Room Air 04/08/25 04:19 Course Vital Signs Vital signs: Vital Signs Temperature 99.0 F 04/08/25 04:19 Pulse Rate 88 04/08/25 04:19 Respiratory Rate 19 04/08/25 04:19 Blood Pressure 128/72 04/08/25 04:19 Pulse Oximetry 96 04/08/25 04:19 Oxygen Delivery Method Room Air 04/08/25 04:19 Temperature 99.0 F 04/08/25 04:19 Pulse Rate 103 H 04/08/25 10:40 Respiratory Rate 23 H 04/08/25 10:40 Blood Pressure 115/68 04/08/25 10:30 Pulse Oximetry 97 04/08/25 11:30 Oxygen Delivery Method Room Air 04/08/25 04:19 Medical Decision Making MDM Narrative Medical decision making narrative: This 50-year-old female is brought to the emergency department by EMS from home for evaluation of dizziness and confusion. The patient takes trazodone for sleep and took a trazodone last night. She was formerly on Ambien but is not currently taking Ambien. She also takes Lyrica. I did review her OARRS report which is positive for Lyrica only. Upon arrival she was confused as to the day of the week and the year and has a small eccymotic area under her left eye which she thinks may have been caused from a kitchen cabinet hitting her. Her neuroexam was otherwise normal. EKG is a sinus rhythm at 84 bpm with no acute findings. An IV was placed and routine labs were ordered. She has a normal white count and hemoglobin. Electrolytes are normal. She does have elevation in her liver function tests and lactic acid is 2.6. She has a normal troponin. She is not having any abdominal pain or back pain. She was given IV fluids and meclizine. On reevaluation she states she is feeling better. She states that when she woke up the room was spinning and she was extremely dizzy. She states that even if she closes her eyes she felt like the room was spinning. On re-evaluation, she is tolerating clear liquids and feeling less dizzy. CXR was reviewed by mkie and does not show any acute findings, CT scan of the head/brain was also ordered. CT scan of the head is pending at the end of my shift and she will be signed out to the incoming physician at 7am 0705 DR JAMILA grover below Urine was ordered at 0 650, result still pending at 0750. Additional labs ordered as well secondary possibility of alcoholic hepatitis and alcohol history. Radiologist had called me, recommending CT venogram for possibility of dural venous thrombosis, there is increased density involving the right transverse and sigmoid sinuses and the straight sinus. No acute hemorrhage. Secondary to patient's confusion, possible alcohol history, and uncertainties of patient's case and vertigo/dizziness, MRI will be ordered to rule out sinus venous thrombosis, make sure patient does or does not need anticoagulation. 0730 I was spoken to MRI staff, coroner technician has been notified, radiology staff has been notified, looking for purchasing director as well, they are aware of order. 0800 patient has been reevaluated. Patient is very somnolent, tired, patient will open up her eyes briefly to verbal stimuli and then try to go back to sleep. When patient was questioned multiple times about different things she would carry conversation with her eyes closed. Patient blood sugar was rechecked, 111. Patient will be given 1 dose of 0.4 mg of Narcan. Patient states that she smokes 1 pack of cigarettes a day, denies any illicit drug use. Patient says that she did smoke what she thought was a cigarette last night but maybe it was a joint, her boyfriend smokes marijuana she does not. Patient seems surprised that she had marijuana in her system. Patient told CONCHA RN that she smokes 2 pints of vodka daily. Patient's LFTs are slightly elevated. Patient does not smell of alcohol at this time. Additional labs have been ordered. Patient's oxygen was also 90 to 92% on room air, patient was placed on 2 L. There has been a significant amount of time spent to see if patient's hardware is MRI compatible or not. Thankfully to cd technician Myrtle along with the radiology staff, calling [facility] and speaking to radiologist, it was determined that patient is not MRI compatible. Patient did have a CAT scan venogram did not show any type of acute sinus venous thrombosis. Patient felt much better after the IV fluids. Patient has something to eat and drink for breakfast and lunch. Patient was ambulating the halls well with no difficulty. With CONCHA TERRELL at bedside, I discussed patient's findings and concerns of alcoholic hepatitis, and the need for rehabilitation and to limit alcohol use or she will have the risk of cirrhosis and ultimately . Patient had education on UTI and proteinuria. Patient was sent home with antibiotics will follow-up and needs to establish with PCP so she can reevaluate proteinuria and UTI. Patient is aware she is to call your PCP or the health department of the county she [place] in. Patient understands she needs to curb her tobacco abuse and alcohol abuse. Patient told me that she only drinks alcohol 2 pints maybe 2 or 3 times a week, not daily like she initially told nursing staff. Patient has a safe ride home. Patient was given a copy of her CT brain venogram. Patient is safe for discharge. No questions at discharge. Patient is aware of the positive marijuana in her system as well. Patient is very clear on the findings of alcoholic hepatitis with elevation of liver enzymes and agrees that she needs help with alcoholism. Patient has no vertigo at discharge. There was a lengthy amount of time while patient was in the ER this morning waiting for cd technician to get to the hospital, trying to perform the MRI, performing pelvic x-ray to make sure patient has no metal in her body, speaking to other hospitals and radiologist to see if patient is MRI compatible, and then ultimately doing the CT of the brain venogram. Multiple, multiple hours were spent on this, patient was very thankful and understanding. Critical care time 47 minutes exclusive from separate billable procedures that were performed. The following was considered in the determination of critical care but not limited to the level of medical decision making, intensive cardiac and/or respiratory monitoring, frequent vital sign monitoring, evaluation of laboratory studies, evaluation of radiographic studies, oxygen monitoring, and constant monitoring and speaking to family at bedside Lab Data Labs: Lab Results 04/08/25 04/08/25 04/08/25 Range/Units 05:05 06:38 07:57 WBC 4.8 (4.0-11.0) 10^3/uL RBC 4.00 L (4.20-5.40) 10^6/uL Hgb 14.3 (12.0-16.0) g/dL Hct 41.5 (36.0-48.0) % MCV 103.8 H (81.0-99.0) fL MCH 35.8 H (26.7-34.0) pg MCHC 34.5 (29.9-35.2) g/dL RDW 12.8 (11.0-15.0) % Plt Count 272 (150-450) 10^3/uL MPV 9.6 (9.5-13.5) fL Neut % (Auto) 67.6 (43.0-75.0) % Lymph % (Auto) 19.3 L (20.5-60.0) % Conway % (Auto) 11.0 (1.7-12.0) % Eos % (Auto) 0.4 L (0.9-7.0) % Baso % (Auto) 1.5 (0.2-2.0) % Neut # (Auto) 3.3 (1.4-6.5) 10^3/uL Lymph # (Auto) 0.9 L (1.2-3.8) 10^3/uL Conway # (Auto) 0.5 (0.3-0.8) 10^3/uL Eos # (Auto) 0.0 (0.0-0.7) 10^3/uL Baso # (Auto) 0.1 (0.0-0.1) 10^3/uL Abs Immat Gran (auto) 0.01 (0.00-0.03) 10^3/uL Imm/Tot Granulo (auto) 0.2 (0.0-0.5) % Sodium 139 (136-145) mmol/L Potassium 3.5 (3.5-5.1) mmol/L Chloride 101 (98-107) mmol/L Carbon Dioxide 28.9 (21.0-32.0) mmol/L Anion Gap 12.6 BUN 20.0 H (7.0-18.0) mg/dL Creatinine 0.96 (0.55-1.02) mg/dL Est GFR ( Amer) >60 (>=60 mL/min/1.73m^2) Est GFR (Non-Af Amer) >60 (>=60 mL/min/1.73m^2) BUN/Creatinine Ratio 20.8 Glucose 250 H (74-106) mg/dL Lactate 2.7 H* (0.4-2.0) mmol/L Calcium 8.6 (8.5-10.1) mg/dL Magnesium 1.5 L (1.8-2.4) mg/dL Total Bilirubin 0.7 (0.2-1.0) mg/dL AST 191 H (15-37) U/L ALT 126 H (14-59) U/L Alkaline Phosphatase 168 H (46-116) U/L Total Creatine Kinase 73 (26-192) U/L Troponin I High Sens 6.2 (4.0-51.3) pg/mL Total Protein 6.7 (6.4-8.2) g/dL Albumin 3.7 (3.4-5.0) g/dL Globulin 3.0 g/dL Albumin/Globulin Ratio 1.2 Urine Color Yellow (YELLOW) Urine Clarity Clear (CLEAR) Urine pH 6.5 (5.0-9.0) Ur Specific Dalton 1.020 (1.005-1.025) Urine Protein 30 A (NEG/TRACE) mg/dL Urine Glucose (UA) Negative (NEGATIVE) mg/dL Urine Ketones Trace A (NEGATIVE) mg/dL Urine Occult Blood Negative (NEGATIVE) Urine Nitrite Positive A (NEGATIVE) Urine Bilirubin Negative (NEGATIVE) Urine Urobilinogen 1.0 (0.2-1.0) EU/dL Ur Leukocyte Esterase Negative (NEGATIVE) Urine RBC 0-2 (0-2) #/HPF Urine WBC 5-10 A (NONE SEEN) #/HPF Ur Squamous Epith Cells Rare (NONE/RARE) #/LPF Urine Crystals None seen (None Seen) #/HPF Urine Bacteria Moderate A (NONE SEEN) #/HPF Urine Casts None seen (NONE SEEN) #/LPF Urine Mucus None seen (NONE SEEN) Ur Culture Indicated? Yes-[facility] [place] Urine Opiates Screen Negative (NEGATIVE) Ur Buprenorphine Scrn Negative (NEGATIVE) Ur Oxycodone Screen Negative (NEGATIVE) Urine Methadone Screen Negative (NEGATIVE) Ur Barbiturates Screen Negative (NEGATIVE) U Tricyclic Antidepress Negative (NEGATIVE) Ur Phencyclidine Scrn Negative (NEGATIVE) Ur Amphetamines Screen Negative (NEGATIVE) U Methamphetamines Scrn Negative (NEGATIVE) U Benzodiazepines Scrn Negative (NEGATIVE) Urine Cocaine Screen Negative (NEGATIVE) U Cannabinoids Screen Positive A (NEGATIVE) Ethanol Quant <3 mg/dL POC Glucose (74-106) mg/dL 04/08/25 04/08/25 Range/Units 07:59 08:01 WBC (4.0-11.0) 10^3/uL RBC (4.20-5.40) 10^6/uL Hgb (12.0-16.0) g/dL Hct (36.0-48.0) % MCV (81.0-99.0) fL MCH (26.7-34.0) pg MCHC (29.9-35.2) g/dL RDW (11.0-15.0) % Plt Count (150-450) 10^3/uL MPV (9.5-13.5) fL Neut % (Auto) (43.0-75.0) % Lymph % (Auto) (20.5-60.0) % Conway % (Auto) (1.7-12.0) % Eos % (Auto) (0.9-7.0) % Baso % (Auto) (0.2-2.0) % Neut # (Auto) (1.4-6.5) 10^3/uL Lymph # (Auto) (1.2-3.8) 10^3/uL Conway # (Auto) (0.3-0.8) 10^3/uL Eos # (Auto) (0.0-0.7) 10^3/uL Baso # (Auto) (0.0-0.1) 10^3/uL Abs Immat Gran (auto) (0.00-0.03) 10^3/uL Imm/Tot Granulo (auto) (0.0-0.5) % Sodium (136-145) mmol/L Potassium (3.5-5.1) mmol/L Chloride (98-107) mmol/L Carbon Dioxide (21.0-32.0) mmol/L Anion Gap BUN (7.0-18.0) mg/dL Creatinine (0.55-1.02) mg/dL Est GFR ( Amer) (>=60 mL/min/1.73m^2) Est GFR (Non-Af Amer) (>=60 mL/min/1.73m^2) BUN/Creatinine Ratio Glucose (74-106) mg/dL Lactate 0.9 (0.4-2.0) mmol/L Calcium (8.5-10.1) mg/dL Magnesium (1.8-2.4) mg/dL Total Bilirubin (0.2-1.0) mg/dL AST (15-37) U/L ALT (14-59) U/L Alkaline Phosphatase (46-116) U/L Total Creatine Kinase (26-192) U/L Troponin I High Sens 6.5 (4.0-51.3) pg/mL Total Protein (6.4-8.2) g/dL Albumin (3.4-5.0) g/dL Globulin g/dL Albumin/Globulin Ratio Urine Color (YELLOW) Urine Clarity (CLEAR) Urine pH (5.0-9.0) Ur Specific Dalton (1.005-1.025) Urine Protein (NEG/TRACE) mg/dL Urine Glucose (UA) (NEGATIVE) mg/dL Urine Ketones (NEGATIVE) mg/dL Urine Occult Blood (NEGATIVE) Urine Nitrite (NEGATIVE) Urine Bilirubin (NEGATIVE) Urine Urobilinogen (0.2-1.0) EU/dL Ur Leukocyte Esterase (NEGATIVE) Urine RBC (0-2) #/HPF Urine WBC (NONE SEEN) #/HPF Ur Squamous Epith Cells (NONE/RARE) #/LPF Urine Crystals (None Seen) #/HPF Urine Bacteria (NONE SEEN) #/HPF Urine Casts (NONE SEEN) #/LPF Urine Mucus (NONE SEEN) Ur Culture Indicated? Urine Opiates Screen (NEGATIVE) Ur Buprenorphine Scrn (NEGATIVE) Ur Oxycodone Screen (NEGATIVE) Urine Methadone Screen (NEGATIVE) Ur Barbiturates Screen (NEGATIVE) U Tricyclic Antidepress (NEGATIVE) Ur Phencyclidine Scrn (NEGATIVE) Ur Amphetamines Screen (NEGATIVE) U Methamphetamines Scrn (NEGATIVE) U Benzodiazepines Scrn (NEGATIVE) Urine Cocaine Screen (NEGATIVE) U Cannabinoids Screen (NEGATIVE) Ethanol Quant mg/dL POC Glucose 111 H (74-106) mg/dL Discharge Plan Discharge Chief Complaint: Dizziness Clinical Impression: Dizziness, Alcoholic hepatitis, Confusion, Marijuana use, UTI (urinary tract infection), Proteinuria Patient Disposition: Home, Self-Care Time of Disposition Decision: 14:13 Condition: Fair Prescriptions / Home Meds: New sulfamethoxazole-trimethoprim [Bactrim DS] 800-160 mg tablet 1 tab PO BID 7 Days Qty: 14 0RF No Action trazodone 100 mg tablet 100 mg PO HS pregabalin 300 mg capsule 300 mg PO BID azelastine 137 mcg (0.1 %) spray,non-aerosol 1 spray INTRANASAL BID fluoxetine 20 mg capsule 20 mg PO DAILY Print Language: German Instructions: Dehydration (ED), Urinary Tract Infection in Women (ED), Cannabis Use Disorder (ED), Dizziness (ED), Alcoholic Hepatitis (ED) Additional Instructions: Increase fluids at home, Gatorade, Powerade, water. You do not have glucose in your urine, no acute signs of diabetes at this time. You do have protein in your urine. Increase fluids at home, follow-up with urine testing next week to recheck for urinary tract infection and proteinuria. There was marijuana in your drug screen. A copy of your CT report was given to you, there is no acute signs of venous sinus thrombosis, blood clot in the veins in your brain. Increase fluids at home, follow-up with PCP for additional testing Education was given to you on alcoholic hepatitis. You have elevated liver function test from probable chronic alcohol use. Follow-up with your PCP for outpatient rehabilitation from alcohol use or inpatient testing if needed. You are placed on antibiotic, start your first dose today. Referrals: Christin Elmore DO [Physician, Hospitalist] - 1 week Physician,Non-Staff, MD [Primary Care Provider] - 1 week Discharge Date/Time: 04/08/25 14:32
[2025-04-08 05:13] LABS: Hematocrit 41.5 % (36.0-48.0); Hemoglobin 14.3 g/dL (12.0-16.0); Immature Granulocytes Abs Auto 0.01 10^3/uL (0.00-0.03); Immature Granulocytes Pct Auto 0.2 % (0.0-0.5); Lymphocytes Absolute Auto 0.9 10^3/uL (1.2-3.8); Mean Corpuscular HGB Conc 34.5 g/dL (29.9-35.2); Mean Corpuscular Hemoglobin 35.8 pg (26.7-34.0); Mean Corpuscular Volume 103.8 fL (81.0-99.0); Platelet Count 272 10^3/uL (150-450); Red Blood Count 4.00 10^6/uL (4.20-5.40); White Blood Count 4.8 10^3/uL (4.0-11.0)
[2025-04-08 05:32] LABS: Alanine Aminotransferase 126 U/L (14-59); Albumin Globulin Ratio 1.2; Albumin Level 3.7 g/dL (3.4-5.0); Alkaline Phosphatase 168 U/L (46-116); Anion Gap 12.6; Aspartate Amino Transferase 191 U/L (15-37); Blood Urea Nitrogen 20.0 mg/dL (7.0-18.0); Calcium 8.6 mg/dL (8.5-10.1); Carbon Dioxide 28.9 mmol/L (21.0-32.0); Chloride 101 mmol/L (98-107); Estimated GFR (African America >60 (>=60 mL/min/1.73m^2); Estimated GFR (Non-African Ame >60 (>=60 mL/min/1.73m^2); Globulin 3.0 g/dL; Glucose 250 mg/dL (74-106); Potassium 3.5 mmol/L (3.5-5.1); Sodium 139 mmol/L (136-145); Total Protein 6.7 g/dL (6.4-8.2)
[2025-04-08 05:33] LABS: Lactate/Lactic Acid 2.7 mmol/L (0.4-2.0)
[2025-04-08] MEDS: MECLIZINE HCL 12.5 MG TABLET 25 MG PO (05:47)
[2025-04-08] MEDS: 0.9 % SODIUM CHLORIDE 1,000 ML 1000 ML IV (05:47)
[2025-04-08 07:06] LABS: Cannabinoid Screen Urine POSITIVE (NEGATIVE); Methamphetamines Screen Urine NEGATIVE (NEGATIVE); Tricyclic Antidepressant Urine NEGATIVE (NEGATIVE)
[2025-04-08 08:06] LABS: Glucose Urine UA NEGATIVE (NEGATIVE)
[2025-04-08 08:08] LABS: Cast Seen? NONE SEEN #/LPF (NONE SEEN); Crystals Seen? None Seen #/HPF (None Seen); Urine Culture Indicated YES-FRMC
[2025-04-08] MEDS: NALOXONE HCL 0.4 MG/ML VIAL IV (08:11)
[2025-04-08] MEDS: 0.9 % SODIUM CHLORIDE 1,000 ML 100 ML IV (08:11)
[2025-04-08 08:30] LABS: Creatine Kinase 73 U/L (26-192); Magnesium 1.5 mg/dL (1.8-2.4)
[2025-04-08 08:33] LABS: Lactate/Lactic Acid 0.9 mmol/L (0.4-2.0)
--- NOTE | 2025-04-08 08:35 | PC.NURSE ---
pt provided with warm breakfast tray. will continue plan of care
--- NOTE | 2025-04-08 08:57 | PC.NURSE ---
senior grant writer checked pts co2 level. according to CO2 monitor, pt is reading 1-3%. pr is alert and oriented x 4
--- NOTE | 2025-04-08 10:43 | XR_ITS ---
The [address] [address] Patient Name: WILBUR VILLALBA MRN: [id number] date: 1975 Sex: F Assigned Patient Location: ER Current Patient Location: ER Accession/Order Number: [id number] Exam Date: 04/08/2025 10:45 Report Date: 04/08/2025 11:02 At the request of: RAHEL MARINO MD Procedure: XR pelvis 1-2V AP PELVIS: CLINICAL HISTORY: rule out metal COMPARISON: None No fractures or dislocation. Postsurgical changes status post open reduction internal fixation of left acetabulum noted with fixation plate and surgical screws. Hardware appears grossly intact. Suspected trochanteric calcification left could represent heterotrophic ossification versus enthesopathy. There is evidence of intravascular stent which projects over L5-S1. Otherwise no fracture is identified. No additional metallic foreign body identified XR/XR pelvis 1-2V IMPRESSION: NO ACUTE BONY FINDINGS. POSTSURGICAL CHANGES LEFT ACETABULUM AND EVIDENCE OF A VASCULAR STENT NOTED. Impression dictated by: Malik Call M.D. 04/08/2025 11:02 AM Dictation Location: [place] [address] Electronically authenticated by: [id number] Y Date: 04/08/2025 11:02
--- NOTE | 2025-04-08 13:46 | PC.NURSE ---
newspaper writer to bedside to offer for pt to order lunch pt declines wanted to order anything at this time will continue plan of care
== END 2025-04-08 14:32 | disposition home or self-care (01) ==
PROVIDERS: Emergency Medicine; Emergency Provider Emergency Medicine
DX: R42 Dizziness and giddiness (principal); K70.10 Alcoholic hepatitis without ascites; R41.0 Disorientation, unspecified; F12.90 Cannabis use, unspecified, uncomplicated; N39.0 Urinary tract infection, site not specified; R80.9 Proteinuria, unspecified; Z79.899 Other long term (current) drug therapy
CPT/HCPCS: 36415; 70450; 70460; 71045; 72170; 76376; 80053; 80307; 80320; 81001; 82550; 83605; 83735; 84484; 85025; 87086; 87088; 87186; 93005; 96361; 96374; 99284; J1230; Q9967